=== PATIENT | female | born 1970 | race Caucasian/White ===

== ENCOUNTER 2020-12-14 13:31 | Emergency (ER) | payer OTHER ==
[~2020-12-14] VITALS: Ht 157.5 cm; Wt 68.0 kg
[2020-12-14 13:47] VITALS: BP 131/82
[2020-12-14] MEDS ORDERED: KETOROLAC TROMETHAMINE INJ 30 MG/ML VIAL ONE (14:09)
[2020-12-14] MEDS ORDERED: IBUPROFEN 600 MG TABLET ONE (14:21)
--- NOTE | 2020-12-14 14:24 | NUR ---
TELETYPE ADJUSTER AT BEDSIDE
[2020-12-14] MEDS ORDERED: NAPR-1009 PO (14:26)
[2020-12-14] MEDS ORDERED: IBUPROFEN 600 MG TABLET PO ONE (14:30)
[2020-12-14] MEDS ORDERED: KETOROLAC TROMETHAMINE INJ 30 MG/ML VIAL IM ONE (14:30)
== END 2020-12-14 15:14 | disposition home or self-care (01) ==
LOC: ER 13:37
DX: M54.6 Pain in thoracic spine (principal); R07.81 Pleurodynia; W01.0XXA Fall on same level from slipping, tripping and stumbling without subsequent striking against object, initial encounter; Y93.01 Activity, walking, marching and hiking; Y92.89 Other specified places as the place of occurrence of the external cause; Y99.8 Other external cause status
CPT/HCPCS: 71100-TC; J1885